=== PATIENT | male | born 2005 | race Caucasian/White ===

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

== ENCOUNTER 2023-06-20 15:17 | Outpatient (OUT) | payer BC, OTHER, SELFPAY ==
[2023-06-20 15:57] LABS: Basophils Percent Auto 0.4 % (0.2-2.0); Eosinophils Absolute Auto 0.1 10^3/uL (0.0-0.7); Eosinophils Percent Auto 1.8 % (0.9-7.0); Hematocrit 42.9 % (42.0-54.0); Hemoglobin 14.2 g/dL (14.0-18.0); Immature Granulocytes Abs Auto 0.01 10^3/uL (0.00-0.03); Immature Granulocytes Pct Auto 0.2 % (0.0-0.5); Lymphocytes Absolute Auto 2.2 10^3/uL (1.2-3.8); Lymphocytes Percent Auto 49.1 % (20.5-60.0); Mean Corpuscular HGB Conc 33.1 g/dL (29.9-35.2); Mean Corpuscular Hemoglobin 28.9 pg (25.9-34.0); Mean Corpuscular Volume 87.4 fL (80.0-94.0); Mean Platelet Volume 11.8 fL (9.5-13.5); Monocytes Absolute Auto 0.3 10^3/uL (0.3-0.8); Monocytes Percent Auto 6.4 % (1.7-12.0); Neutrophils Absolute Auto 1.9 10^3/uL (1.4-6.5); Neutrophils Percent Auto 42.1 % (43.0-75.0); Platelet Count 199 10^3/uL (150-450); Red Blood Count 4.91 10^6/uL (4.70-6.10); White Blood Count 4.5 10^3/uL (4.0-11.0)
[2023-06-20 16:02] LABS: Erythrocyte Sedimentation Rate 2 mm/hr (<=15)
[2023-06-20 16:54] LABS: Percent Iron Saturation 36.8 %
[2023-06-20 16:56] LABS: Free T4 0.85 ng/dL (0.78-1.34)
[2023-06-20 17:02] LABS: Alanine Aminotransferase 17 U/L (16-63); Albumin Globulin Ratio 1.2; Albumin Level 4.4 g/dL (3.4-5.0); Alkaline Phosphatase 82 U/L (46-116); Anion Gap 10.6; Aspartate Amino Transferase 8 U/L (15-37); BUN Creatinine Ratio 14.1; Bilirubin Total 0.6 mg/dL (0.2-1.0); Calcium 9.5 mg/dL (8.5-10.1); Carbon Dioxide 30.7 mmol/L (21.0-32.0); Chloride 106 mmol/L (98-107); Estimated GFR (African America >60 (>=60); Estimated GFR (Non-African Ame >60 (>=60); Globulin 3.7 g/dL; Glucose 91 mg/dL (74-106); Potassium 4.3 mmol/L (3.5-5.1); Sodium 143 mmol/L (136-145); Thyroid Stimulating Hormone 1.141 uIU/mL (0.516-4.130); Total Protein 8.1 g/dL (6.4-8.2)
[2023-06-20 17:58] LABS: C Reactive Protein <0.50 mg/dL (<=0.50)
[2023-06-22 15:09] LABS: t-Transglutaminase (tTG) IgA <2 U/mL (0-3)
== END 2023-06-20 15:18 | disposition home or self-care (01) ==
LOC: LAB 15:20
PROVIDERS: PCP Internal Medicine; Visit Provider Internal Medicine
DX: R55 Syncope and collapse (principal); R63.4 Abnormal weight loss; R03.0 Elevated blood-pressure reading, without diagnosis of hypertension; R19.7 Diarrhea, unspecified
CPT/HCPCS: 36415; 80053; 83540; 83550; 83735; 84439; 84443; 85025; 85652; 86140; 86364